=== PATIENT | male | born 1975 | race Caucasian/White ===

== ENCOUNTER 2016-09-13 10:40 | Emergency (ER) | payer BC ==
[~2016-09-13] VITALS: Ht 160 cm; Wt 80.0 kg
[2016-09-13 10:42] VITALS: Ht 160 cm; Wt 80.0 kg
--- NOTE | 2016-09-13 11:22 | ERD ---
ER Documentation Chief Complaint Date/Time DATE: 09/13/16 TIME: 11:16 Chief Complaint left elbow pain, no trauma today HPI This 41-year-old male who presents the emergency department today complaining of left elbow pain that started yesterday. Patient states on Wednesday night he was lifting furniture around his house. Denies any other significant trauma. Denies any fevers or chills. ROS All systems reviewed and are negative except as per history of present illness. Medications Home Meds Active Scripts Hydrocodone/Acetaminophen (Kintyre 5-325 Tablet) 1 Each Tablet, 1 TAB PO Q6H Y for PAIN, #7 TAB Prov:KAREN DAVE PA-C 09/13/16 Naproxen* (Naprosyn*) 500 Mg Tablet, 500 MG PO BID Y for PAIN AND/OR INFLAMMATION, #30 TAB Prov:KAREN DAVE PA-C 09/13/16 Allergies Allergies: Coded Allergies: No Known Allergy (Unverified , 09/13/16) Physical Exam Vitals Vital Signs Date Time Temp Pulse Resp B/P Pulse Ox O2 Delivery O2 Flow Rate FiO2 09/13/16 10:42 98.1 74 20 145/95 99 Physical Exam Const: NAD Head: Atraumatic Eyes: Normal Conjunctiva ENT: Normal External Ears, Nose and Mouth. Neck: Full range of motion..~ No meningismus. Resp: Clear to auscultation bilaterally Cardio: Regular rate and rhythm, no murmurs Skin: No petechiae or rashes MSK: Left elbow with no obvious deformity. No effusion. No ecchymosis. No erythema or warmth. Tenderness palpation over medial epicondyle and just proximal to that with small amount of swelling and tenderness. Full active range of motion with pain with flexion into extension. Pulses 2+. Distal neurovascularly intact. Neur: Awake and alert Psych: Normal Mood and Affect Results 24 hrs Current Medications Medications (Trade) Dose Ordered Sig/Melisa Route PRN Reason Start Time Stop Time Status Last Admin Dose Admin Acetaminophen/ Hydrocodone Bitart (Kintyre (5/325)) 1 tab ONCE ONCE PO 09/13/16 11:30 09/13/16 11:31 DC 09/13/16 11:26 DIAGNOSTIC IMAGING REPORT Patient: MEGHAN PIMENTEL : 1975 Age: 41 Sex: M MR #: [id number] DOS: 09/13/16 0000 Ordering MD: KAREN DAVE PA-C Location: [facility] Room/Bed: PROCEDURE: CR Left Elbow CLINICAL INDICATION: Pain over medial epicondyle TECHNIQUE: AP, lateral, and an oblique radiographs were submitted. COMPARISON: None FINDINGS: Osseous Structures: The osseous elements appear well mineralized and intact. Joint Spaces: The joint spaces are well maintained. No joint effusion is evident. Soft Tissues: Appear unremarkable. IMPRESSION: Unremarkable left elbow series. Physician Shanelle Date Time Electronically viewed and signed by Physician Shanelle on 09/13/2016 11:56 RH/ CC: KAREN DAVE PA-C Procedures/MDM This a 41-year-old male who presents to the emergency department today complaining of left elbow pain that started yesterday. Patient denies any trauma however he was lifting heavy furniture the day prior. Patient was requesting an x-ray. At this point to the patient that I do not feel that this is beneficial however he states maybe it is broken". I explained to him that without trauma this is not likely. States "maybe I fell out of bed or something ". Per the radiology report images of the left elbow are unremarkable. Joint spaces are well-maintained and there is no joint effusion evident. Patient symptoms at this time is consistent with sprain versus strain over ulnar collateral ligament. He is afebrile and otherwise well-appearing. Low suspicion for septic joint or gout. Low suspicion for olecranon bursitis. Patient was given Kintyre here in the emergency department reported pain significantly improved. I will give him a prescription for Naprosyn and a short course of Kintyre for home. At this time the patient is stable for discharge and outpatient management. Patient should follow up with their PCP in the next 1-2 days. They may return to the emergency department sooner for any persistent or worsening of symptoms. Patient understood and agreed with the plan. Departure Diagnosis: Primary Impression: Elbow pain Laterality: left Qualified Code: M25.522 - Left elbow pain Condition: Fair KAREN DAVE PA-C Sep 13, 2016 11:21
[2016-09-13] MEDS ORDERED: HYDROCODONE/APAP (5/325) TAB PO ONE (11:30)
--- NOTE | 2016-09-13 11:56 | RADRPT ---
PROCEDURE: CR Left Elbow CLINICAL INDICATION: Pain over medial epicondyle TECHNIQUE: AP, lateral, and an oblique radiographs were submitted. COMPARISON: None FINDINGS: Osseous Structures: The osseous elements appear well mineralized and intact. Joint Spaces: The joint spaces are well maintained. No joint effusion is evident. Soft Tissues: Appear unremarkable. IMPRESSION: Unremarkable left elbow series. Physician Shanelle Date Time Electronically viewed and signed by Physician Shanelle on 09/13/2016 11:56 /
[2016-09-13] MEDS ORDERED: NAPR-260 PO (12:13)
[2016-09-13] MEDS ORDERED: HYDR-906 PO (12:14)
== END 2016-09-13 12:50 | disposition home or self-care (01) ==
LOC: FTE 10:40
DX: M25.522 Pain in left elbow (principal)